=== PATIENT | female | born 1980 | race Caucasian/White ===

== ENCOUNTER 2020-04-26 17:28 | Emergency (ER) | payer OTHER ==
[2020-04-26 17:33] VITALS: BMI 22.1
[2020-04-26] MEDS ORDERED: SODIUM CHLORIDE 1,000 ML IV STA (18:14)
[2020-04-26] MEDS ORDERED: ACETAMINOPHEN 1000 MG/100 ML VIAL (NON FORMULARY) IVPB ONE (18:14)
[2020-04-26] MEDS ORDERED: ACETAMINOPHEN INJECTION 100 ML IVPB ONE (18:36)
[2020-04-26 18:45] LABS: BASO % 0.5 % (0-2.0); HEMATOCRIT 41.2 % (32.4-45.2); HEMOGLOBIN 13.8 GM/dL (10.7-15.3); LYMPH % 20.4 % (8-40); MCH 30.2 pg (25.7-33.7); MCHC 33.5 g/dl (32.0-36.0); MEAN CELL VOLUME 90.2 fl (80-96); MEAN PLT VOLUME 9.3 fl (7.5-11.1); MONO % 4.4 % (3.8-10.2); NEUT % 70.7 % (42.8-82.8); PLATELET COUNT 214 K/MM3 (134-434); RBC 4.57 M/mm3 (3.60-5.2); RDW 13.1 % (11.6-15.6); WHITE BLOOD COUNT 8.9 K/mm3 (4.0-10.0)
[2020-04-26 18:49] LABS: EPI CELLS 22 /uL (0-25.1); HYALINE CASTS 7 /uL (0-3.1); URINE APPEARANCE CLEAR; URINE BACTERIA 1164 /uL (0-1359); URINE BILIRUBIN NEGATIVE (NEGATIVE); URINE COLOR YELLOW; URINE GLUCOSE (UA) NEGATIVE (NEGATIVE); URINE KETONE TRACE (NEGATIVE); URINE LEUK ESTERASE 2+ (NEGATIVE); URINE NITRITE NEGATIVE (NEGATIVE); URINE PROTEIN NEGATIVE (NEGATIVE); URINE RBC 7 /uL (0-23.9); URINE UROBILINOGEN 0.2 mg/dL (0.2-1.0); URINE WBC 260 /uL (0-25.8)
[2020-04-26 19:11] LABS: HCG,QUALITATIVE URINE Positive
[2020-04-26 19:16] LABS: ALBUMIN 4.3 g/dl (3.4-5.0); ALK PHOS 58 U/L (45-117); ANION GAP 9 MMOL/L (8-16); BILIRUBIN,TOTAL 0.3 mg/dL (0.2-1); BLOOD UREA NITROGEN 12.6 mg/dL (7-18); CALCIUM 9.2 mg/dL (8.5-10.1); CHLORIDE 103 mmol/L (98-107); CO2 24 mmol/L (21-32); CREATININE 0.7 mg/dL (0.55-1.3); GLUCOSE,RANDOM 87 mg/dL (74-106); SGOT/AST 14 U/L (15-37); SGPT/ALT 24 U/L (13-61); SODIUM 136 mmol/L (136-145)
--- NOTE | 2020-04-26 19:46 | PDOC ---
History of Present Illness - General Chief Complaint: Nausea Stated Complaint: FATIGUE/BODY PAIN/NAUSEA/ Time Seen by Provider: 04/26/20 17:38 History Source: Patient Exam Limitations: No Limitations Past History - Travel History Traveled outside of the country in the last 30 days: No Close contact w/someone who was outside of country & ill: No - Medical History Allergies/Adverse Reactions: Allergies Allergy/AdvReac Type Severity Reaction Status Date / Time Penicillins Allergy Verified 04/26/20 17:33 Home Medications: Ambulatory Orders Nitrofurantoin Monohyd/M-Cryst [Macrobid -] 100 mg PO BID #14 capsule 04/26/20 traZODone HCL [Trazodone HCl] 50 mg PO HS 04/26/20 COPD: No - Reproductive History Is Patient Now?: No - Psycho-Social/Smoking History Smoking History: Never smoked - Substance Abuse Hx (Audit-C & DAST Scrn) How often the patient has a drink containing alcohol: Never Score: In Men: 4 or > Positive; In Women: 3 or > Positive: 0 Screen Result (Pos requires Nsg. Audit-10AR): Negative Review of Systems - Review of Systems Able to Perform ROS?: Yes Comments:: 04/26/20 19:46 CONSTITUTIONAL: Present: Generalized weakness, fatigue, body aches Absent: fever, chills, diaphoresis, malaise, loss of appetite HEENT: Absent: rhinorrhea, nasal congestion, throat pain, throat swelling, difficulty swallowing, mouth swelling, ear pain, eye pain, visual Changes CARDIOVASCULAR: Absent: chest pain, loss of consciousness, palpitations, irregular heart rate, peripheral edema RESPIRATORY: Absent: cough, shortness of breath, dyspnea with exertion, orthopnea, wheezing, stridor, hemoptysis GASTROINTESTINAL: Absent: abdominal pain, abdominal distension, nausea, vomiting, diarrhea, constipation, melena, hematochezia GENITOURINARY: Absent: dysuria, frequency, urgency, hesitancy, hematuria, flank pain, genital pain MUSCULOSKELETAL: Absent: myalgia, arthralgia, joint swelling SKIN: Absent: rash, itching, pallor HEMATOLOGIC/IMMUNOLOGIC: Absent: easy bleeding, easy bruising, lymphadenopathy, frequent infections ENDOCRINE: Absent: unexplained weight gain, unexplained weight loss, heat intolerance, cold intolerance NEUROLOGIC: Absent: headache, focal weakness or paresthesias, dizziness, unsteady gait, seizure, mental status changes, bladder or bowel incontinence PSYCHIATRIC: Absent: anxiety, depression, suicidal or homicidal ideation, hallucinations. Is the patient limited Khmer proficient: No *Physical Exam - Vital Signs Last Vital Signs Temp Pulse Resp BP Pulse Ox 98.5 F 82 18 124/77 99 04/26/20 17:30 04/26/20 17:30 04/26/20 17:30 04/26/20 17:30 04/26/20 17:30 - Physical Exam 04/26/20 19:52 GENERAL: Well developed, well nourished. Awake and alert. No acute distress. HEENT: Normocephalic, atraumatic. PERRLA, EOMI. No conjunctival pallor. Sclera are non- icteric. Moist mucous membranes. Oropharynx is clear. NECK: Supple. Full ROM. No JVD. Carotid pulses 2+ and symmetric, without bruits. No thyromegaly. No lymphadenopathy. CARDIOVASCULAR: Regular rate and rhythm. No murmurs, rubs, or gallops. Distal pulses are 2+ and symmetric. PULMONARY: No evidence of respiratory distress. Lungs clear to auscultation bilaterally. No wheezing, rales or rhonchi. ABDOMINAL: Soft. Non-tender. Non-distended. No rebound or guarding. No organomegaly. Normoactive bowel sounds. MUSCULOSKELETAL Normal range of motion at all joints. No bony deformities or tenderness. No CVA tenderness. EXTREMITIES: No cyanosis. No clubbing. No edema. No calf tenderness. SKIN: Warm and dry. Normal capillary refill. No rashes. No jaundice. NEUROLOGICAL: Alert, awake, appropriate. Cranial nerves 2-12 intact. No deficits to light touch and temperature in face, upper extremities and lower extremities. No motor deficits in the in face, upper extremities and lower extremities. Normoreflexic in the upper and lower extremities. Normal speech. Toes are down-going bilateral ly. Gait is normal without ataxia. PSYCHIATRIC: Cooperative. Good eye contact. Appropriate mood and affect. ED Treatment Course - LABORATORY CBC & Chemistry Diagram: 04/26/20 18:20 04/26/20 18:20 - ADDITIONAL ORDERS Additional order review: Laboratory Results 04/26/20 04/26/20 18:20 18:20 Sodium 136 Potassium 4.0 Chloride 103 Carbon Dioxide 24 Anion Gap 9 BUN 12.6 Creatinine 0.7 Est GFR (CKD-EPI)AfAm 127.39 Est GFR (CKD-EPI)NonAf 109.91 Random Glucose 87 Calcium 9.2 Total Bilirubin 0.3 AST 14 L ALT 24 Alkaline Phosphatase 58 Creatine Kinase 58 Troponin I < 0.02 Total Protein 8.0 Albumin 4.3 Urine Color Yellow Urine Appearance Clear Urine pH 5.0 Ur Specific [place] 1.016 Urine Protein Negative Urine Glucose (UA) Negative Urine Ketones Trace H Urine Blood Negative Urine Nitrite Negative Urine Bilirubin Negative Urine Urobilinogen 0.2 Ur Leukocyte Esterase 2+ H Urine WBC (Auto) 260 Urine RBC (Auto) 7 Urine Casts (Auto) 7 U Epithel Cells (Auto) 22 Urine Bacteria (Auto) 1164 Urine HCG, Qual Positive 04/26/20 18:20 RBC 4.57 MCV 90.2 MCHC 33.5 RDW 13.1 MPV 9.3 Neutrophils % 70.7 Lymphocytes % 20.4 Monocytes % 4.4 Eosinophils % 4.0 Basophils % 0.5 - Medications Given in the ED: ED Medications Discontinued Medications Generic Name Dose Route Start Last Admin Trade Name Corkyq PRN Reason Stop Dose Admin Acetaminophen 1,000 mg 04/26/20 18:14 04/26/20 18:44 Ofirmev Injection - IVPB 04/26/20 18:15 Not Given ONCE ONE Sodium Chloride 1,000 mls @ 1,000 mls/hr 04/26/20 18:14 04/26/20 18:43 Normal Saline - IV 04/26/20 19:13 1,000 mls/hr ASDIR STA Administration Medical Decision Making - Medical Decision Making 04/26/20 19:52 Patient is a 39-year-old female with no past medical history, no surgical history, presents to the ER with 1 week of fatigue, generalized body aches, and generalized weakness. She states that she had similar symptoms back in December and November that have since resolved. She states that now that she has had a repeat of her generalized weakness and body aches she is concerned and came to the ER for evaluation. She initially went to an urgent care who sent her to the ER for blood work and further evaluation. 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 She does endorse changing her control 2 months ago. Denies headaches, nausea, vomiting, diarrhea, chest pain, difficulty breathing. A/P: Fatigue Exam shows no acute findings. Regular rate and rhythm, lungs clear to auscultation bilateral with out wheezes rales or rhonchi. Abdomen soft nontender without rebound guarding or tenderness. Broad work-up ordered for fatigue. Differential diagnosis includes but is not limited to anemia, rhabdo, infection, Lyme, mono, Lab work grossly unremarkable, urine positive for infection as well as . Beta-hCG added on at this time. Patient sent for transvaginal ultrasound. 04/26/20 20:29 Wet read of US, single IUP. Per US, HR 127 EKG: rate 87 BPM, NSR, Normal intervals and axis. No acute ST-T wave changes. Overall, normal EKG. 04/26/20 20:46 Preliminary imaging port from imaging component lab tech supports my wet read. There is also a 1.9 cm ovarian cyst. Patient made aware. Discharge home with Macrobid for UTI and OB follow-up I discussed the physical exam findings, ancillary test results and final diagnoses with the patient. I answered all of the patient's questions. The patient was satisfied with the care received and felt comfortable with the discharge plan and treatment plan. The Patient agrees to follow up with the primary care physician/specialist within 24-72 hours. Return precautions were given. Discharge - Discharge Information Problems reviewed: Yes Clinical Impression/Diagnosis: Fatigue Qualifiers: Fatigue type: -related Trimester: first trimester Qualified Code(s): O26.811 - related exhaustion and fatigue, first trimester Qualifiers: Weeks of gestation: less than 8 weeks Qualified Code(s): Z3A.01 - Less than 8 weeks gestation of Condition: Stable Disposition: HOME - Admission No - Additional Discharge Information Prescriptions: Nitrofurantoin Monohyd/M-Cryst [Macrobid -] 100 mg PO BID #14 capsule - Follow up/Referral Referrals: Malu Ji MD [Primary Care Provider] - - Patient Discharge Instructions Patient Printed Discharge Instructions: DI for Fatigue Additional Instructions: You were seen today for your fatigue. It is most likely due to your . You approximately 5 weeks along according to your ultrasound. There was a heart rate today of 127. You also have a urinary tract infection. Please take the Macrobid as directed. This is safe in . Please drink plenty of fluids and get plenty of rest. The rest of your lab work was unremarkable. Please follow-up with your AUTOMOTIVE TECHNICIAN this week for further management of your symptoms. Return to the ER for abdominal pain, bleeding, fevers or if you have any changes in your symptoms. - Post Discharge Activity
[2020-04-26 20:55] VITALS: BP 113/66; PULSE 66; TEMP 99.2
--- NOTE | 2020-04-27 18:23 | EKG ---
Test Reason : Blood Pressure : / mmHG Vent. Rate : 087 BPM Atrial Rate : 087 BPM P-R Int : 116 ms QRS Dur : 092 ms QT Int : 370 ms P-R-T Axes : 041 058 026 degrees QTc Int : 445 ms NORMAL SINUS RHYTHM NORMAL ECG NO PREVIOUS ECGS AVAILABLE Confirmed by COLLIN ANTHONY MD ([id number]) on 04/27/2020 6:23:02 PM Referred By: Confirmed By:COLLIN ANTHONY MD
== END 2020-04-26 20:55 | disposition home or self-care (01) ==
LOC: JER 17:28
PROC: 3E0337Z Introduction of Electrolytic and Water Balance Substance into Peripheral Vein, Percutaneous Approach (ICD-10-PCS; principal; 2020-04-26)
DX: O26.811 Pregnancy related exhaustion and fatigue, first trimester (principal); Z3A.01 Less than 8 weeks gestation of pregnancy
CPT/HCPCS: 36415; 76817-TC; 80053; 81003; 82550; 84443; 84484; 84702; 84703; 85025; 86308; 86618; 86769; 93005; 93010; 99284-25